=== PATIENT | male | born 1950 | race Hispanic/Latino ===

== ENCOUNTER 2019-09-13 08:44 | Day surgery (SDC) | payer MEDICARE ==
[2019-09-08 16:45] LABS: Absolute Lymphocytes (CBC) 2.4 K/uL (0.7-4.9); Basophils % 1.3 % (0-1.3); Hematocrit 37.1 % (39.6-49.0); Lymphocytes % 34.2 % (15.3-44.8); MPV 7.9 fL (7.6-11.3); RBC Red Blood Cell Count 4.11 M/uL (4.33-5.43)
--- NOTE | 2019-09-08 16:45 | RAD REPORT ---
EXAM DESCRIPTION: RAD - Chest Pa And Lat (2 Views) - 09/08/2019 4:37 pm CLINICAL HISTORY: pre-op Chest pain. COMPARISON: No comparisons FINDINGS: The lungs are mildly hyperexpanded with a small calcified granuloma in the left upper lobe . The heart is normal in size. No displaced fractures. Right-sided port catheter has tip in the SVC. IMPRESSION: Mild diffuse COPD.
[2019-09-08 16:58] LABS: BUN Blood Urea Nitrogen 14 mg/dL (7-18); Bicarbonate 30 mmol/L (21-32); Glucose Level 106 mg/dL (74-106); Potassium 4.4 mmol/L (3.5-5.1); Sodium Level 142 mmol/L (136-145)
--- NOTE | 2019-09-09 06:47 | EKG ---
Test Date: 2019-09-08 Test Time: 16:38:17 Radiosonde Operator: ET MEASUREMENT RESULTS: Intervals: Rate: 58 [place]: 152 QRSD: 90 QT: 464 QTc: 455 [place]: P: 3 [place]: 152 QRS: 58 T: 76 INTERPRETIVE STATEMENTS: Sinus bradycardia Otherwise normal ECG No previous ECG available for comparison Electronically Signed On 09-09-19 06:46:31 OFFICE 365 CONSULTANT by Ephraim White
[2019-09-13] MEDS ORDERED: CEFAZOLIN/SWI 1gm 1 GM/10 ML SYR ONE (09:07)
[2019-09-13] MEDS ORDERED: Ringers Lactate 1,000 ML IV ONE (09:07)
[2019-09-13] MEDS ORDERED: BUPIVACAINE 0.5% PF 10 ML VIAL ONE (09:54)
[2019-09-13] MEDS ORDERED: LIDOCAINE 1% 20 ML MDV ONE (09:54)
[2019-09-13] MEDS ORDERED: propofoL 200 MG/20 ML VIAL IV ONE (10:15)
[2019-09-13] MEDS ORDERED: MIDAZOLAM HCL 2 MG/2 ML INJ ONE (10:15)
[2019-09-13] MEDS ORDERED: FENTANYL CITR 100 MCG/2 ML ONE (10:15)
[2019-09-13] MEDS ORDERED: LIDOCAINE 2% MPF 5 ML VIAL ONE (10:17)
--- NOTE | 2019-09-13 10:30 | P.BOP ---
Preoperative diagnosis: Prostate cancer Postoperative diagnosis: same Primary procedure: Portacath removal Estimated blood loss: <10cc Specimen: intact portacath Findings: as above Anesthesia: General Complications: None Transferred to: Recovery Room Condition: Good
[2019-09-13] MEDS ORDERED: ONDANSETRON 4 MG/2 ML VIAL ONE (10:36)
[2019-09-13 11:51] VITALS: BP 125/52; TEMP 978; O2SAT 96
--- NOTE | 2019-09-13 20:51 | OP ---
Date of Procedure: 09/13/2019 Surgeon: Raji Bassett MD Preoperative Diagnosis: Prostate cancer. Postoperative Diagnosis: Prostate cancer. Procedure: Port-A-Cath removal. Specimens: Port-A-Cath. Indications: This is the case of a 69-year-old patient, who comes to us with above diagnosis. Fully explained the benefits, alternatives, and risks of Port-A-Cath removal which include, but not limite d to infection, bleeding, damage to adjacent structures, anesthesia complications, PE, TX, and even d eath. He also understands this may not relieve any symptoms, he might need more than one surgical in tervention. He understood, signed a consent. The area of concern was marked by me and the patient i n the holding room. Description Of Procedure: Patient was brought to the operating room, placed in supine position. Ane sthesia was done without complication. A time-out was called. The right chest was prepped and drape d in sterile fashion. Incision was made on the Port-A-Cath region. The Port-A-Cath was released ful ly intact by me. Catheter came back intact. Pressure was applied over the insertion point for about 15 minutes. The area was irrigated. The area was closed with 3-0 chromic in a subcuticular fashion and Steri-Strips on top. Sponge count and instrument counts were correct. Patient tolerated the pr ocedure well. Patient was sent to recovery in stable condition. MELONIE/CORRINE Voice ID: [id number] Report ID: [id number]
--- NOTE | 2019-09-13 20:54 | OP ---
Date of Procedure: 09/13/2019 Surgeon: Raji Bassett MD Diagnosis: Prostate cancer. Procedure: Port-A-Cath removal. Disposition: Home. Activity: As tolerated. No heavy lifting. Followup: Follow up in my office in 1 week. Call for appointment, [phone]. Keep area dry for 48 h ours, then may shower. Keep Steri-Strips intact. Medications: Include Tylenol No.3 q.4 hours p.r.n. pain. MELONIE/CORRINE Voice ID: [id number] Report ID: [id number]
== END 2019-09-13 12:15 | disposition home or self-care (01) ==
LOC: OR 08:44
PROVIDERS: ATTEND Surgery
PROC: 0JPT3WZ Removal of Totally Implantable Vascular Access Device from Trunk Subcutaneous Tissue and Fascia, Percutaneous Approach (ICD-10-PCS; principal; 2019-09-13 10:45)
DX: Z45.2 Encounter for adjustment and management of vascular access device (principal); C61 Malignant neoplasm of prostate; I10 Essential (primary) hypertension; E78.00 Pure hypercholesterolemia, unspecified
CPT/HCPCS: 93005; 85025; 80048; 36415; 88300; 71046; 36590; J2704; J2250; J3010; J0690; J7120; J2405

== ENCOUNTER 2024-09-28 10:58 | Day surgery (SDC) | payer OTHER ==
--- NOTE | 2024-09-20 10:00 | RAD REPORT ---
EXAMINATION: TWO VIEW CHEST XR CLINICAL INDICATION: Pre-op pending TURP TECHNIQUE: 2 views of the chest was performed. COMPARISON: 03/19/2023 FINDINGS: The lungs are hyperexpanded suggesting COPD. The heart is upper limit of normal in size. No displaced fractures evident. Small hiatal hernia. IMPRESSION: COPD is suspected without acute finding identified. The USPSTF recommends annual screening for lung cancer with low-dose computed tomography (LDCT) in ad ults aged 50 to 80 years who have a 20 pack-year smoking history and currently smoke or have quit within the past 15 years. Screening should be discontinued once a person has not smoked for 15 years or develops a health problem that substantially limits life expectancy or the ability or willingness to have curative lung surgery.
[2024-09-20 10:13] LABS: Absolute Eosinophils 0.2 K/uL (0-0.5); Absolute Lymphocytes (CBC) 1.7 K/uL (0.7-4.9); Absolute Monocytes 0.4 K/uL (0.1-1.3); Absolute Neutrophil 3.1 K/uL (1.8-8.0); Basophils % 0.8 % (0-1.3); Eosinophils % 3.9 % (0-4.4); Hematocrit 37.7 % (39.6-49.0); Hemoglobin 12.3 g/dL (13.6-17.9); Lymphocytes % 30.6 % (15.3-44.8); MCH 30.1 pg (27.0-35.0); MCHC 32.6 g/dL (32.0-36.0); MCV 92.4 fL (80-100); Monocytes % 7.8 % (3.3-12.3); Neutrophils % 56.9 % (41.7-73.7); Nucleated Red Blood Cells % 0.1 % (0-0); Platelets 227 thou/uL (152-406); RBC Red Blood Cell Count 4.08 M/uL (4.33-5.43); Red Cell Distribution Width 13.7 % (12.1-15.2)
[2024-09-20 10:16] LABS: PT Prothrombin Time 10.8 SECONDS (9.4-12.5); Protime INR 1.03
[2024-09-20 10:22] LABS: Anion Gap 7.7 mEq/L (5.0-15.0); Potassium 4.7 mEq/L (3.5-5.1)
--- NOTE | 2024-09-21 12:43 | EKG ---
Test Date: 2024-09-20 Test Time: 10:26:11 Drophammer Operator: RAMONA MEASUREMENT RESULTS: Intervals: Rate: 55 MT: 156 QRSD: 92 QT: 460 QTc: 440 [place]: P: 22 MT: 156 QRS: 77 T: 75 INTERPRETIVE STATEMENTS: Sinus bradycardia Otherwise normal ECG Compared to ECG 09/08/2019 16:38:17 No significant changes Electronically Signed On 09-21-24 12:41:36 [facility] [employer] by Aníbal Pina
[2024-09-28] MEDS: Ringers Lactate 1,000 ML IV ONE (12:55)
[2024-09-28] MEDS ORDERED: ONDANSETRON 4 MG/2 ML VIAL ONE (12:59)
[2024-09-28] MEDS ORDERED: propofoL 200 MG/20 ML VIAL IV ONE (13:04)
[2024-09-28] MEDS ORDERED: LIDOCAINE 1% MPF 5 ML VIAL ONE (13:04)
[2024-09-28] MEDS ORDERED: ROCURONIUM 50 MG/5 ML VIAL IV ONE (13:05)
[2024-09-28] MEDS ORDERED: FENTANYL CITR 100 MCG/2 ML ONE ×2 (13:05→14:07)
[2024-09-28] MEDS ORDERED: MIDAZOLAM HCL 2 MG/2 ML INJ ONE (13:05)
[2024-09-28] MEDS: CIPROFLOXACIN 400mg IV 400 MG/200 ML BAG IV ONE (13:37)
[2024-09-28] MEDS ORDERED: EPHEDRINE SULF 50 MG/ML VIAL ONE (13:41)
[2024-09-28] MEDS ORDERED: GLYCOPYRROLATE 0.2 MG/ML SYR ONE (14:11)
[2024-09-28] MEDS ORDERED: NEOSTIGMINE 1 MG/ML -10 ML VIAL ONE (14:11)
[2024-09-28] MEDS ORDERED: dexAMETHasone 10 MG/ML VIAL ONE (14:12)
--- NOTE | 2024-09-28 15:12 | P.OP ---
Date of Service: 09/28/24 Preoperative diagnoses: BPH with LUTS Intravesical foreign body/exposed UroLift implant left bladder neck s/p UroLift 04/01/2023 Postoperative diagnoses: BPH with LUTS Intravesical foreign body/exposed UroLift implant left bladder neck s/p UroLift 04/01/2023 Principal procedures: Bipolar TURP Removal of intravesical foreign body/UroLift implant at bladder neck, and a total of 7 urethral in pieces with 1 capsular tab Indication for procedure: 74-year-old gentleman who underwent UroLift for bothersome LUTS and had modest improvement in his symptoms that eventually began to decline. He underwent cystoscopic evaluation revealing a partially exposed implant intravesically at the left lateral wall bladder neck region, and there was some residual lateral lobar hypertrophy with the median lobe. As a result, I counseled him that we would work to relieve any residual obstruction and remove the intravesical foreign body at the same time. We agreed that I would do this in the way I thought best, which may involve a bipolar TURP or a attempted redo UroLift after the implant intravesical was removed. Procedure note: The patient was consented in the preoperative holding area before being transferred to the operative suite where general anesthesia was induced. He was given Cipro for 2 mg IV antimicrobial prophylaxis, and pneumoboots were provided for DVT prophylaxis. He was placed in the lithotomy position, padded and secured to the table appropriately. His genitalia was prepped with Hibiclens and he was draped in standard fashion. The case was begun using urethral sounds to dilate the meatus and fossa navicularis from 22 [place] to 30 [place]. I then utilized a visual obturator and the 26 [place] bipolar resectoscope sheath to traverse the urethra and into the bladder with ease. I navigated beyond the previously described slight residual lateral lobar hypertrophy with a median lobe that was intravesically projecting along with an elevated median bar contributing to ongoing obstruction. There was a partial continuous anterior channel visible. I then surveyed the bladder in its entirety with a 30 degree lens and was unable to identify the foreign body in the bladder as evidenced using the flexible cystoscopy in the office. As a result, I used a 70 degree lens and was able to identify the calcified tip of the implant emanating from the bladder neck on the left laterally. As a result, I switched back to the 30 degree lens and utilized the bipolar thick resection loop to begin resecting the adenoma involving the intraluminal implant ultimately removing the implant and ensuring it was taken out of his bladder. I continued to resect and ultimately removed the urethral end piece as well. As I surveyed the remainder of the obstruction trying to decide if additional UroLift implants could be placed, because of the elevated median bar/bladder neck and median lobe, instead, I elected to resect the elevated median bar down to the level of the trigone, and resected the median lobe to create a smooth trough to the level of the verumontanum. After doing all of this resection, as I surveyed any residual lateral lobar hypertrophy, I could not leave that behind; so I continued to resect any lateral lobar hypertrophy to create a wide open fossa consistent with a TURP. In the process, 7 UroLift urethral in pieces were removed, and 1 capsular tab also was able to be extracted as a partial pull-through from the initial implantation. Careful fulguration was performed of multiple phases along the resection to quell any bleeding, and continued resection was performed with the bladder decompressed in order to ensure adequate resection of the adenoma. Then, with the bladder completely decompressed after Ilich evacuation of all prostate chips and removal of all foreign bodies from within the bladder, I then ensured to fulgurate such that we were completely hemostatic with no inflow or bladder pressure present. As a result, with the bladder free of any intravesical foreign body or prostate chips, and with the urethra hemostatic, I then removed the resectoscope and ensured no prostate chips present within the urethra on the way out. I then placed a 22 [place] three-way Goncalves catheter via his urethra into his bladder with ease and placed approximately 35 cc sterile water in the balloon. The patient was taken out of the lithotomy position and the catheter was placed to modest traction secured to his left upper thigh, and draining to a floor bag. He was then awakened from general anesthesia before being transferred to a stretcher and then transferred to the recovery room in good condition. Complications: None Discharge disposition: Standard TURP follow-up pathway with voiding trial on or Friday and subsequent follow-up in approximately 3 months unless he is having issues that require sooner follow-up.
[2024-09-28] MEDS ORDERED: PHENAZOPYRIDINE 100MG TAB PO ONE ×2 (15:48→15:54)
[2024-09-28] MEDS ORDERED: OXYBUTYNIN ER 5 MG TAB PO ONE (15:48)
[2024-09-28] MEDS ORDERED: HYDROCODONE/APAP 5/325 MG TAB ONE (15:48)
[2024-09-28] MEDS: OXYBUTYNIN ER 5 MG TAB PO ONE (15:53)
[2024-09-28] MEDS: HYDROCODONE/APAP 5/325 MG TAB PO PRN (15:54)
[2024-09-28] MEDS: PHENAZOPYRIDINE 100MG TAB PO ONE (15:54)
[2024-09-28] MEDS: NACL 0.9% IRR SOLN 2,000 ML IRR ONE (16:00)
[2024-09-28 17:18] VITALS: BP 139/60; TEMP 97.1; O2SAT 98
== END 2024-09-28 17:17 | disposition home or self-care (01) ==
LOC: OR 10:58
PROVIDERS: ATTEND Urology
PROC: 0VT08ZZ Resection of Prostate, Via Natural or Artificial Opening Endoscopic (ICD-10-PCS; principal; 2024-09-28 13:00)
DX: N40.1 Benign prostatic hyperplasia with lower urinary tract symptoms (principal); T19.1XXA Foreign body in bladder, initial encounter; R31.29 Other microscopic hematuria; I10 Essential (primary) hypertension; E03.9 Hypothyroidism, unspecified; E78.00 Pure hypercholesterolemia, unspecified; Z85.46 Personal history of malignant neoplasm of prostate
CPT/HCPCS: 52601; 93005; 87088; 85025; 87086; 80048; 36415; 85610; 71046; J2704; J2710; J2003; J2250; J3010 ×2; J1100; J2405; J0744; J7120; 88305